=== PATIENT | male | born 1960 | race Caucasian/White ===

== ENCOUNTER 2018-05-07 11:32 | Emergency (ER) | payer BC ==
[~2018-05-07] VITALS: Ht 175.3 cm; Wt 87.1 kg
[2018-05-07 11:48] VITALS: BP 180/88
[2018-05-07] MEDS: TETANUS-DIPTH-ACEL PERTUSSIS 0.5ML SYRG IM ONE (14:52)
[2018-05-07] MEDS: cefTRIAXone SOD 1,000 MG VL IM ONE (14:53)
== END 2018-05-07 15:09 | disposition home or self-care (01) ==
LOC: ER 11:32
CPT/HCPCS: 73130 ×2; 90471 ×2; 90715 ×2; 96372 ×2; 99283; J0696 ×2